=== PATIENT | male | born 1975 | race Caucasian/White ===

== ENCOUNTER 2019-05-28 09:28 | Emergency (ER) | payer OTHER ==
[~2019-05-28] VITALS: Ht 182.9 cm; Wt 102.3 kg
[2019-05-28] MEDS ORDERED: ULTRAM50 MG PO (09:36)
[2019-05-28] MEDS ORDERED: LEXAPRO10 MG PO (09:36)
[2019-05-28] MEDS ORDERED: LISINOPRIL5 MG PO (09:36)
[2019-05-28 09:50] LABS: BASOPHILS 0.2 % (0-2); EOSINOPHILS 1.1 % (0-7); HEMATOCRIT 43.7 % (42.0-54.0); HEMOGLOBIN 14.9 g/dL (13.5-17.5); IMMATURE GRANULOCYTES 0.1 % (0-5); LYMPHOCYTES 45.5 % (15-50); MCH 29.2 pg (26.0-34.0); MCHC 34.1 g/dL (31.0-37.0); MCV 85.7 fL (80.0-100.0); MEAN PLATELET VOLUME 9.7 fL (7.4-10.4); NEUTROPHILS 44.1 % (40-80); PLATELET COUNT 294 10x3/uL (130-400); RDW 13.6 % (11.5-14.5); WBC 8.5 10x3/uL (4.8-10.8)
[2019-05-28 10:05] LABS: ALBUMIN 3.9 g/dL (3.4-5.0); ALKALINE PHOSPHATASE 69 U/L (46-116); ALT (SGPT) 30 U/L (10-68); APTT 29.3 SECONDS (22.8-39.4); BILIRUBIN - TOTAL 0.61 mg/dL (0.2-1.3); CALC OSMOLALITY 271 mosm/kg (275-300); CALCIUM 8.7 mg/dL (8.5-10.1); CHLORIDE - SERUM 99 mmol/L (98-107); CREATININE - SERUM 1.3 mg/dL (0.6-1.3); GLUCOSE 96 mg/dL (74-106); INR 0.99 (0.85-1.17); POTASSIUM - SERUM 3.9 mmol/L (3.5-5.1); PROTEIN - SERUM 7.8 g/dL (6.4-8.2); PROTIME 12.6 SECONDS (11.6-15.0); SODIUM 135 mmol/L (136-145); UREA NITROGEN 17 mg/dL (7-18); eGFR NON AFRICAN AMERICAN 63 mL/min (90-120)
[2019-05-28 10:15] LABS: CKMB 0.9 U/L (0.0-3.6); CREATINE KINASE 111 UL (21-232); MAGNESIUM - SERUM 1.6 mg/dL (1.8-2.4)
[2019-05-28 10:17] LABS: TROPONIN-I < 0.017 ng/mL (0.000-0.060)
[2019-05-28 11:47] VITALS: Ht 182.9 cm; Wt 102.3 kg
[2019-05-28] MEDS ORDERED: NAPROSYN500 MG PO (12:22)
[2019-05-28 12:37] VITALS: BP 115/70
--- NOTE | 2019-06-06 13:30 | CN ---
PATIENT NAME:PAMELA HANLEY MEDICAL RECORD: [id number] : 73 LOCATION:.ER ADMIT DATE: ACCOUNT: [id number] CONSULTING PHYSICIAN: ELOISE HARTMANN MD REFERRING PHYSICIAN: ELSY SALINAS MD DATE OF CONSULTATION: 05/28/2019 CARDIOLOGY CONSULTATION ADMITTING DIAGNOSES: 1. Chest pain. 2. Hypertension. 3. Hyperlipidemia. HISTORY OF PRESENT ILLNESS: Mr. Hanley presents with chest pain, just started last night and episodes of chest pain that would only last a few seconds to a minute, some tightness and some sharp jabbing pains. He thinks that if he took a deep breath it did make it worse and the tightness would come on intermittently as well that would not be made better or worse with a deep breath or positional changes. His EKG is normal. Troponin is normal. He is having no pain at this time. PHYSICAL EXAMINATION: CONSTITUTIONAL/GENERAL APPEARANCE: Well nourished, well developed, appears stated age. EYES: Lids and conjunctivae noninjected. No discharge. No pallor. ENT: Lips within normal limit. No cyanosis. No pallor. NECK: Carotid arteries, bilateral normal upstroke. No bruits. No thrills. No jugular venous pressure or distention. CERVICAL LYMPH NODES: Nontender. Nonenlarged. THYROID: Not enlarged. No nodules. CARDIOVASCULAR: Precordial exam, nondisplaced. No heaves or pericardial thrills. Rate and rhythm, regular. Heart sounds, normal S1, normal S2. No S3, no gallop, no rub. Systolic murmur, not heard. Diastolic murmur, not heard. RESPIRATORY: Respiratory effort, unlabored. Normal curvature. No thoracic deformity. No chest wall tenderness. Percussion, resonant. Auscultation, clear. No wheezes, no rales, no rhonchi. ABDOMEN: Soft, nondistended, nontender. No abdominal pain, no vomiting and normal appetite. MUSCULOSKELETAL: No joint tenderness, normal gait, normal tone. SKIN: Warm and dry. OVERALL IMPRESSION: Chest pain, some typical components, some atypical components for angina. We will set him up for stress testing and Cardiolite imaging. 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
== END 2019-05-28 12:38 | disposition home or self-care (01) ==
LOC: D.ER 09:28
PROVIDERS: Family Medicine
DX: R07.89 Other chest pain (principal); I10 Essential (primary) hypertension; F41.9 Anxiety disorder, unspecified